=== PATIENT | male | born 1995 | race Caucasian/White ===

== ENCOUNTER 2018-01-03 22:23 | Emergency (ER) | payer BC ==
[2018-01-03 22:28] VITALS: BP 165/90
--- NOTE | 2018-01-03 22:41 | EDPHY ---
H & P Time Seen by Provider: 01/03/18 22:37 HPI/ROS: CHIEF COMPLAINT: Left wrist pain HISTORY OF PRESENT ILLNESS: Patient is a 22-year-old male who fell off his scooter today onto an outstretched left hand. Reporting left wrist and hand pain. Denies any head injury, neck pain, other associated injuries. Does not taking blood thinners and has tried Motrin which did improve his pain. ROS As detailed in HPI Smoking Status: Never smoked Physical Exam: General: Alert and oriented. Nontoxic appearing. No acute distress HEENT: Pupils PERRLA. No oral lesions. Cardiopulmonary: Regular rate and rhythm. No lower extremity edema Skin: [place] warm and dry. No lesions. Muscle skeletal: Moving all 4 extremities. Equal strength in upper extremities and lower extremities. Ambulatory. Tenderness to the distal left radius and over the left anatomical snuffbox. Neurovascular intact distal to the left wrist. Constitutional: Initial Vital Signs Temperature (C) 36.8 C 01/03/18 22:26 Heart Rate 100 01/03/18 22:26 Respiratory Rate 16 01/03/18 22:26 Blood Pressure 165/90 H 01/03/18 22:26 O2 Sat (%) 97 01/03/18 22:26 O2 Delivery Mode Room Air Allergies/Adverse Reactions: No Known Allergies Allergy (Unverified 01/03/18 22:28) Medical Decision Making - Diagnostics Imaging Results: Imaging Impressions Wrist X-Ray 01/03/18 22:36 Impression: No definite fracture of the left wrist. Hand X-Ray 01/03/18 22:40 Impression: No definite fracture of the left hand. ED Course/Re-evaluation: Patient here with left wrist injury after fall on outstretched hand. Does have tenderness over the distal radius and anatomical snuffbox. He is placed in a thumb spica with concern for scaphoid injury. X-ray reveals no acute fracture. He was offered pain medication but declined. We discussed follow-up for possible scaphoid injury. Differential Diagnosis: Fracture, dislocation, scaphoid injury, compartment syndrome Departure - Departure Disposition: Home, Routine, Self-Care Clinical Impression: Left wrist sprain Condition: Good Instructions: Scaphoid Fracture (ED), Wrist Sprain (ED) Additional Instructions: Follow-up in 5-7 days with her primary care doctor to have you're wrist rechecked. Referrals: NONE *PRIMARY CARE P,. [Primary Care Provider] - As per Instructions [facility],. [Clinic] - As per Instructions Stand Alone Forms: Work Limited Duty, Work Excuse
== END 2018-01-03 23:24 | disposition home or self-care (01) ==
DX: S63.502A Unspecified sprain of left wrist, initial encounter (principal); V00.141A Fall from scooter (nonmotorized), initial encounter; Y93.89 Activity, other specified; Y92.9 Unspecified place or not applicable; Y99.9 Unspecified external cause status
CPT/HCPCS: L3807